=== PATIENT | female | born 1995 | race Caucasian/White ===

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

== ENCOUNTER 2017-03-16 20:25 | Emergency (ER) | payer MEDICAID ==
[2017-03-17 00:14] LABS: HEMATOCRIT 40.4 % (36.0-48.0); HEMOGLOBIN 13.9 g/dL (12-16); LYMPHOCYTES 39.9 % (15-50); MCH 30.5 pg (26.0-34.0); MCHC 34.4 g/dL (31.0-37.0); MCV 88.8 fL (80.0-100.0); MEAN PLATELET VOLUME 9.8 fL (7.4-10.4); NEUTROPHILS 53.3 % (40-80); PLATELET COUNT 318 10x3/uL (130-400); RBC 4.55 10x6/uL (4.00-5.40); RDW 12.7 % (11.5-14.5); WBC 10.3 10x3/uL (4.8-10.8)
[2017-03-17 00:25] LABS: HCG SERUM NEGATIVE (NEGATIVE)
[2017-03-17 00:34] LABS: ALBUMIN 3.9 g/dL (3.4-5.0); ALKALINE PHOSPHATASE 77 U/L (46-116); ALT (SGPT) 28 U/L (10-68); BILIRUBIN - TOTAL 0.25 mg/dL (0.2-1.3); CALC OSMOLALITY 277 mosm/kg (275-300); CALCIUM 8.6 mg/dL (8.5-10.1); CARBON DIOXIDE 24.8 mmol/L (21.0-32.0); CHLORIDE - SERUM 103 mmol/L (98-107); CREATININE - SERUM 0.7 mg/dL (0.6-1.3); GLUCOSE 117 mg/dL (74-106); POTASSIUM - SERUM 3.5 mmol/L (3.5-5.1); PROTEIN - SERUM 7.4 g/dL (6.4-8.2); SODIUM 139 mmol/L (136-145); UREA NITROGEN 9 mg/dL (7-18); eGFR NON AFRICAN AMERICAN > 90 mL/min (90-120)
[2017-03-17 00:35] LABS: TROPONIN-I < 0.017 ng/mL (0.000-0.060)
== END 2017-03-17 01:33 | disposition home or self-care (01) ==
LOC: D.ER 20:25
PROVIDERS: Emergency Medicine
DX: R07.9 Chest pain, unspecified (principal); F17.200 Nicotine dependence, unspecified, uncomplicated

== ENCOUNTER 2018-04-30 17:38 | Emergency (ER) | payer MEDICAID ==
[~2018-04-30] VITALS: Ht 157.5 cm; Wt 84.5 kg
[2018-04-30 17:52] VITALS: BP 143/91; Ht 157.5 cm; Wt 84.5 kg
[2018-04-30] MEDS ORDERED: TORADOL10 MG PO (21:12)
== END 2018-04-30 21:28 | disposition home or self-care (01) ==
LOC: D.ER 17:38
DX: M54.2 Cervicalgia (principal)